=== PATIENT | male | born 1960 | race Caucasian/White ===

== ENCOUNTER → 2016-07-30 21:53 | Emergency (ER) | payer BC ==
--- NOTE | ~2016-07-30 | CT4 ---
[facility] A Service of [facility] & [facility] RADIOLOGY TEXT RESULTS PATIENT: KIERA QUINTANILLA LOCATION: [facility] : 64 UNIT #: [id number] AGE: [address]: Ariel Perkins MD SEX: M ORDER DR: [id number] [facility] [address] [place], [place] [address] [id number] E MR#: [id number] Acc #: [id number] NAME: KIERA QUINTANILLA : 1960 SEX: M STUDY DATE/TIME: 07/30/2016 21:18 UNIT: [facility] ROOM: STUDY DESCRIPTION: CT Abd and Pelv Wo Cont Attending Physician: Ariel Perkins M.D. Ordering Physician: Ariel Perkins M.D. Primary Care Physician: Primary Care Physician No MEDICAL IMAGING REPORT This report is preliminary unless electronic signature is present EXAM CT of the abdomen and pelvis without contrast media HISTORY Left flank pain for 3 weeks. Previous diagnosis of diverticulitis. Date of study is 07/30/2016, comparison studies of 07/19/2014. TECHNIQUE Axial imaging of the abdomen and pelvis was performed without contrast media. This CT exam was performed with one or more of the following radiation dose reduction techniques: Automatic exposure control, adjustment of mA and/or kV according to patient size, and iterative reconstruction. FINDINGS Lung bases are clear. There are coronary atherosclerotic calcifications in the right coronary. Scans through the liver parenchyma show no focal abnormalities. Gallbladder is surgically absent, spleen is of normal size, adrenal glands are normal and the pancreas is normal. The right kidney is normal. The left kidney is hydronephrotic. The left ureter is dilated to the left ureterovesical junction where there is an obstructing 4-mm stone. Patient does have pancolonic diverticulosis. There is no CT evidence of diverticulitis. The appendix in this patient is normal. No dilated or thickened loops of bowel are present. There is evidence of degenerative disc disease at L3-4 with a broad-based posterior disc protrusion. CONCLUSION 1. Status post cholecystectomy. 2. 4 mm obstructing stone at the left ureterovesical junction with mild left-sided hydronephrosis. 3. Posterior disc bulging at the L3-4 level which appears unchanged from previous scans. [facility]. [facility] A Service of [facility] & [facility] RADIOLOGY TEXT RESULTS PATIENT: KIERA QUINTANILLA LOCATION: [facility] : 64 UNIT #: [id number] AGE: [address]: Ariel Perkins MD SEX: M ORDER DR: 4. Diverticulosis with no CT evidence of diverticulitis. Dictated by... Dusty Coleman M.D. THIS IS AN ELECTRONICALLY VERIFIED REPORT Dusty Coleman M.D. at 08/03/2016 7:21 AM SERAFIN/alina TD: 07/31/2016 01:38 JOB #: [id number] MEDICAL IMAGING REPORT Page 1 of 1 COPY
[2016-07-30 21:10] LABS: BASOPHIL# 0.1 X10e3 (0-0.3); BASOPHIL% 0.5 % (0-2.5); EOSINOPHIL# 0.2 X10e3 (0-0.7); EOSINOPHIL% 1.1 % (0.0-7.0); HEMATOCRIT 44.9 % (38.0-50.0); HEMOGLOBIN 15.1 gm/dL (13.0-16.0); LYMPHOCYTE# 2.4 X10e3 (1.0-3.5); LYMPHOCYTE% 15.4 % (17.0-45.0); MEAN CELL VOLUME 89.1 FL (83-96); MEAN CORPUSCULAR HGB CONC 33.7 g/dL (30-36); MEAN PLATELET VOLUME 8.6 FL (6.5-11.5); MONOCYTE# 1.4 X10e3 (0-1.0); MONOCYTE% 8.8 % (3.0-12.0); NEUTROPHIL# 11.6 X10e3 (1.5-7.1); NEUTROPHIL% 74.2 % (40-75); PLATELET COUNT 257 X10e3 (140-420); RED BLOOD COUNT 5.04 X10e (3.90-5.60); RED CELL DISTRIBUTION WIDTH 13.5 % (11.0-15.5); WHITE BLOOD COUNT 15.7 X10e3 (4.0-10.5)
[2016-07-30 21:11] LABS: DIFF IND YES
[2016-07-30 21:30] LABS: ANISOCYTOSIS SL; PLATELET ESTIMATE NORMAL (NORMAL)
[2016-07-30 21:31] LABS: ALBUMIN SERUM 4.4 g/dL (3.5-5.0); BILIRUBIN, DIRECT 0.2 mg/dL (0.0-0.2); BILIRUBIN,INDIRECT 1.4 mg/dL (0.0-0.9); BILIRUBIN,TOTAL 1.6 mg/dL (0.2-2.0); BUN/CREATININE RATIO 13.57; CALCIUM SERUM 9.5 mg/dL (8.4-10.2); CREATININE SERUM 1.4 mg/dL (0.6-1.4); POTASSIUM 4.1 mmol/L (3.5-5.1); PROTEIN TOTAL SERUM 7.6 g/dL (6.0-8.3)
[~2016-07-30 21:53] MED LIST: AMARYL PO; COUMADIN5 MG PO; JANUMET 50-1,1 UDTAB PO; LASIX PO; LIPITOR PO; LISINOPRIL PO; LOPRESSOR PO; LOSARTAN POTAS100 MG PO; NEURONTIN300 MG PO; NORCO 10-325 TA1 TAB PO; PROTONIX PO; SENOKOT S1 TA1 PO; TRAMADOL HCL50 M1 PO; XARELTO10 MG PO; XARELTO15 MG PO; XARELTO20 MG
== END | disposition home or self-care (01) ==
LOC: CED 21:53
PROVIDERS: Emergency Medicine
DX: N13.2 Hydronephrosis with renal and ureteral calculous obstruction (principal); Z87.442 Personal history of urinary calculi
CPT/HCPCS: 36415; 74176; 80048; 80076; 82150; 82947; 83690; 85025; 96361; 96374; 96375; 99284; J1885; J2405

== ENCOUNTER 2016-10-19 20:06 | Emergency (ER) | payer BC ==
--- NOTE | ~2016-10-19 | EKG ---
PATIENT: KIERA QUINTANILLA UNIT #: [id number] Ventricular Rate: 73 BPM Atrial Rate: 73 BPM P-R Interval: 158 ms QRS Duration: 122 ms Q-T Interval: 388 ms QTC Calculation(Bezet): 427 ms P [place]: 30 degrees Calculated R [place]: -27 degrees Calculated T [place]: -7 degrees Diagnosis Line: Normal sinus rhythm Diagnosis Line: Cannot rule out Anterior infarct , age Diagnosis Line: undetermined Diagnosis Line: Abnormal ECG Diagnosis Line: When compared with ECG of 23-JAN-2016 07:01, Diagnosis Line: QT has shortened Diagnosis Line: Confirmed by BETO ELIZONDO MD ([id number]) on 10/21/2016 Diagnosis Line: 2:58:46 PM INTERPRETING MD: CARO EMMANUEL
--- NOTE | ~2016-10-19 | CR72 ---
[facility] A Service of [facility] & [facility] RADIOLOGY TEXT RESULTS PATIENT: KIERA QUINTANILLA LOCATION: [facility] : 64 UNIT #: [id number] AGE: [address]: Sea Haddad MD SEX: M ORDER DR: [id number] [facility] [address] [place], [place] [address] [id number] E MR#: [id number] Acc #: [id number] NAME: KIERA QUINTANILLA : 1960 SEX: M STUDY DATE/TIME: 10/19/2016 20:59 UNIT: [facility] ROOM: STUDY DESCRIPTION: CR Chest Single View Portable Attending Physician: Sea Haddad M.D. Ordering Physician: Sea Haddad M.D. MEDICAL IMAGING REPORT This report is preliminary unless electronic signature is present EXAM Portable chest 10/19/2016 HISTORY Shortness of breath beginning today. Chest congestion and cough. FINDINGS The heart is normal in size. There is stable elevation of the right hemidiaphragm with discoid atelectasis at the right lung base. Calcified granuloma right upper lobe. Lungs are otherwise clear. There are no pleural effusions. IMPRESSION No active pulmonary disease. Dictated by... Curt Goodrich M.D. THIS IS AN ELECTRONICALLY VERIFIED REPORT Curt Goodrich M.D. at 10/21/2016 6:20 AM KRT/valencia TD: 10/20/2016 15:59 JOB #: [id number] MEDICAL IMAGING REPORT Page 1 of 1 COPY
[2016-10-19 21:05] LABS: BASOPHIL% 0.5 % (0-2.5); EOSINOPHIL# 0.3 X10e3 (0-0.7); HEMATOCRIT 42.9 % (38.0-50.0); HEMOGLOBIN 14.2 gm/dL (13.0-16.0); LYMPHOCYTE# 2.4 X10e3 (1.0-3.5); LYMPHOCYTE% 28.8 % (17.0-45.0); MEAN CELL VOLUME 90.5 FL (83-96); MEAN CORPUSCULAR HEMOGLOBIN 29.9 PG (28-34); MEAN PLATELET VOLUME 8.6 FL (6.5-11.5); MONOCYTE# 0.8 X10e3 (0-1.0); MONOCYTE% 9.5 % (3.0-12.0); NEUTROPHIL# 4.9 X10e3 (1.5-7.1); NEUTROPHIL% 58.2 % (40-75); PLATELET COUNT 208 X10e3 (140-420); RED BLOOD COUNT 4.75 X10e (3.90-5.60); RED CELL DISTRIBUTION WIDTH 13.3 % (11.0-15.5); WHITE BLOOD COUNT 8.4 X10e3 (4.0-10.5)
[2016-10-19 21:10] LABS: DIFF IND NO
[2016-10-19 21:32] LABS: BILIRUBIN, DIRECT 0.1 mg/dL (0.0-0.2); BILIRUBIN,INDIRECT 1.1 mg/dL (0.0-0.9); BILIRUBIN,TOTAL 1.2 mg/dL (0.2-2.0); CALCIUM SERUM 9.2 mg/dL (8.4-10.2); GLOM FILT RATE Estimated 85.6 mL/min (>60); POTASSIUM 3.8 mmol/L (3.5-5.1); PROTEIN TOTAL SERUM 7.2 g/dL (6.0-8.3)
[2016-10-19 22:23] LABS: URINE SOURCE CLEAN CATCH
[2016-10-19 22:30] LABS: URINE APPEARANCE CLEAR; URINE BILIRUBIN NEG (NEG); URINE BLOOD NEG (NEG); URINE COLOR YELLOW; URINE GLUCOSE >1000 MG/DL (NEG); URINE KETONE NEG (NEG); URINE LEUKOCYTE ESTERASE NEG (NEG); URINE NITRATE NEG (NEG); URINE PROTEIN NEG (NEG); URINE UROBILINOGEN 0.2 MG/DL (NEG)
[2016-10-19 22:35] LABS: POC - CKMB 1.8 ng/mL (0.0-7.9); POC - TROPONIN <0.05 ng/mL (<=0.05)
[2016-10-19 22:39] LABS: CULTURE INDICATED? NO
[2016-10-19 22:41] LABS: POC - CKMB 1.3 ng/mL (0.0-7.9); POC - TROPONIN <0.05 ng/mL (<=0.05)
== END 2016-10-19 23:45 | disposition home or self-care (01) ==
LOC: CED 20:06
PROVIDERS: Emergency Medicine
DX: E11.65 Type 2 diabetes mellitus with hyperglycemia (principal); E11.9 Type 2 diabetes mellitus without complications; I10 Essential (primary) hypertension; Z90.49 Acquired absence of other specified parts of digestive tract; Z79.899 Other long term (current) drug therapy
CPT/HCPCS: 36415; 71010; 80048; 80076; 81003; 82553; 82947; 84484; 85025; 93005; 96360; 96361; 99285